=== PATIENT | male | born 1965 | race Caucasian/White ===

== ENCOUNTER 2016-12-31 08:36 | Emergency (ER) | payer SELFPAY ==
[~2016-12-31] VITALS: Ht 172.7 cm; Wt 84.6 kg
[2016-12-31] MEDS ORDERED: GINSENG250 MG PO (09:02)
[2016-12-31] MEDS ORDERED: ADVIL200 MG PO (09:03)
[2016-12-31] MEDS ORDERED: ARTHRI-FLEX TA1 EACH PO (09:03)
[2016-12-31] MEDS ORDERED: NAPROXEN250 MG PO (09:04)
[2016-12-31] MEDS ORDERED: PREDNISONE50 MG PO (12:15)
[2016-12-31 12:21] VITALS: BP 141/82
== END 2016-12-31 12:24 | disposition home or self-care (01) ==
LOC: EME 08:36
DX: T78.3XXA Angioneurotic edema, initial encounter (principal); T78.40XA Allergy, unspecified, initial encounter; R13.10 Dysphagia, unspecified; F17.200 Nicotine dependence, unspecified, uncomplicated
CPT/HCPCS: 99281; 99284; J1200; J2930; S0028